=== PATIENT | female | born 1995 | race Caucasian/White ===

== ENCOUNTER 2018-12-10 17:32 | Emergency (ER) | payer BC ==
[~2018-12-10] VITALS: Ht 167.6 cm; Wt 50.8 kg
[2018-12-10 17:32] VITALS: BP_SYST 108
--- NOTE | 2018-12-10 17:32 | NUR ---
BROUGHT BACK TO HALLWAY BED AND TRIAGED, REPORT GIVEN TO PRABHU
--- NOTE | 2018-12-10 17:40 | NUR ---
DR RHODES AT BEDSIDE FOR EVALUATION
[2018-12-10] MEDS ORDERED: EPINEPHrine 1 MG/ML AMP SUBCUT ONE (18:00)
[2018-12-10 18:09] LABS: BASOPHILS % (AUTO) 0.1 % (0.0-2.0); EOSINOPHILS # (AUTO) 0.5 K/uL (0.0-0.4); EOSINOPHILS % (AUTO) 3.5 % (0.0-4.0); HEMATOCRIT 40.9 % (36-48); HEMOGLOBIN 13.3 g/dL (12.0-16.0); LYMPHOCYTES # (AUTO) 0.9 K/uL (1.0-5.5); LYMPHOCYTES % (AUTO) 6.6 % (20.5-51.5); MEAN CORPUSCULAR HEMOGLOBIN 28 pg (27-31); MEAN CORPUSCULAR HGB CONC 33 % (32-36); MEAN CORPUSCULAR VOLUME 85 fL (79.0-98.0); MONOCYTES # (AUTO) 0.9 K/uL (0.0-1.0); MONOCYTES % (AUTO) 6.6 % (1.7-9.3); NEUTROPHILS # (AUTO) 11.1 K/uL (1.8-7.7); NEUTROPHILS % (AUTO) 83.2 % (40.0-70.0); PLATELET COUNT (AUTO) 340 K/uL (130-430); RED CELL DISTRIBUTION WIDTH 14.9 % (9.0-15.0); WHITE BLOOD COUNT (AUTO) 13.4 K/uL (4.8-10.8)
[2018-12-10 18:13] LABS: CALCIUM 9.5 mg/dL (8.4-11.0); CREATININE 0.95 mg/dL (0.55-1.30); POTASSIUM 3.5 mmol/L (3.5-5.1)
[2018-12-10 18:17] LABS: INR 1.1 (0.8-1.2)
[2018-12-10 18:18] LABS: ALBUMIN 4.1 g/dL (3.4-4.8)
--- NOTE | 2018-12-10 18:27 | NUR ---
PATIENT CAME IN COMPLAINING OF ALLERGIC REACTION SINCE THURSDAY MORNING. PATIENT UNSURE WHAT CAUSED IT. PATIENT HAS RASH ON TORSO THAT SPREADING TO LEGS. PATIENT STATES SOME TIMES IS ITCHY. PATIENT NOT COMPLAINING OF PAIN OR SOB. PATIENT HAS BEEN USING BENADRYL CREAM BUT HASNT BEEN WORKING. PATIENT IS ALERT AND ORIENTED X4.
[2018-12-10 20:11] VITALS: BP_SYST 108
--- NOTE | 2018-12-10 20:13 | NUR ---
Patient given written and verbal discharge instructions and verbalizes understanding. ER MD discussed with patient the results and treatment provided. Patient in stable condition. ID arm band removed. Rx of Benadryl, epinephrine, prelone and prednisone given. Patient educated on pain management and to follow up with PMD. Pain Scale 0/10 . Opportunity for questions provided and answered. Medication side effect fact sheet provided.
== END 2018-12-10 20:13 | disposition home or self-care (01) ==
LOC: SED 17:32
DX: L25.9 Unspecified contact dermatitis, unspecified cause (principal)
CPT/HCPCS: 36415; 80053; 81025; 85025; 85610; 85730; 99283; J0171

== ENCOUNTER 2021-05-25 06:13 | Emergency (ER) | payer BC ==
[~2021-05-25] VITALS: Ht 167.6 cm; Wt 58.1 kg
[2021-05-25 07:00] VITALS: BP_SYST 121
--- NOTE | 2021-05-25 07:10 | NUR ---
Patient triaged and placed in waiting room. VSS and patient appears in no acute distress at this time. Accompanied by SELF, awaiting available bed, and MD notified of need for MSE.
--- NOTE | 2021-05-25 07:18 | NUR ---
PT STATES THAT AFTER TAKING FLAGYL FOR A WEEK AND DRINKING ALCOHOL LAST NIGHT, PT STATES SHE IS HAVING A FAST HEART RATE AND IS SCARED. PT STATES SHE VOMITED ONCE LAST NIGHT AND FELT A LITTLE BETTER. PT THEN STATED THAT SHE DID COCAINE LAST NIGHT ALSO.
--- NOTE | 2021-05-25 08:01 | NUR ---
PT SITTING IN WAITING ROOM WITH FRIEND. AWAITING ER BED.
--- NOTE | 2021-05-25 08:37 | NUR ---
CALLED FOR BED ASSIGNMENT, UNABLE TO LOCATE PT AT THIS TIME
--- NOTE | 2021-05-25 08:45 | NUR ---
CALLED FOR BED ASSIGNMENT, UNABLE TO LOCATE PT.
--- NOTE | 2021-05-25 08:50 | NUR ---
DR RHODES OUT TO TRIAGE ROOM, UNABLE TO LOCATE PT, PT LWBS
== END 2021-05-25 08:50 | disposition left against medical advice (07) ==
LOC: SED 06:13
DX: T78.40XA Allergy, unspecified, initial encounter (principal); Z53.21 Procedure and treatment not carried out due to patient leaving prior to being seen by health care provider